=== PATIENT | female | born 1970 | race Caucasian/White ===

== ENCOUNTER → 2017-03-08 | Outpatient (CLI) | payer BC ==
--- NOTE | 2017-03-12 07:37 | MM ---
Reason for exam: screening (asymptomatic). Last mammogram was performed 1 year and 1 month ago. History: Family history of breast cancer in maternal aunt. Physical Findings: A clinical breast exam by your physician is recommended on an annual basis and results should be correlated with mammographic findings. MG 3D Screening Mammo W/Cad Bilateral CC and MLO view(s) were taken. Prior study comparison: January 26, 2016, bilateral MG 3d diag mammo w/cad NEELAM. March 10, 2013, bilateral digital screening mammo w/CAD. The breast tissue is heterogeneously dense. This may lower the sensitivity of mammography. There is chronic nodularity bilaterally. No significant changes when compared with prior studies. ASSESSMENT: Negative, BI-RAD 1 RECOMMENDATION: Routine screening mammogram of both breasts in 1 year.
== END | disposition home or self-care (01) ==
LOC: RADMAMWWP 09:10
PROVIDERS: ATTEND Obstetrics & Gynecology
DX: Z12.31 Encounter for screening mammogram for malignant neoplasm of breast (principal)
CPT/HCPCS: 77063; G0202

== ENCOUNTER → 2018-04-23 | Outpatient (CLI) | payer BC ==
--- NOTE | 2018-04-24 13:24 | MM ---
Reason for exam: screening (asymptomatic). Last mammogram was performed 1 year and 1 month ago. History: Family history of breast cancer in maternal aunt. Physical Findings: A clinical breast exam by your physician is recommended on an annual basis and results should be correlated with mammographic findings. MG 3D Screening Mammo W/Cad Bilateral CC and MLO view(s) were taken. Prior study comparison: March 08, 2017, bilateral MG 3d screening mammo w/cad. January 26, 2016, bilateral MG 3d diag mammo w/cad NEELAM. The breast tissue is extremely dense which could obscure a lesion on mammography. No significant changes when compared with prior studies. ASSESSMENT: Benign, BI-RAD 2 RECOMMENDATION: Routine screening mammogram of both breasts in 1 year.
== END | disposition home or self-care (01) ==
LOC: RADMAMWWP 16:50
PROVIDERS: ATTEND Obstetrics & Gynecology
DX: Z12.31 Encounter for screening mammogram for malignant neoplasm of breast (principal); Z80.3 Family history of malignant neoplasm of breast
CPT/HCPCS: 77063; 77067

== ENCOUNTER 2019-04-13 16:09 | Emergency (ER) | payer BC ==
[2019-04-13 16:15] VITALS: TEMP 98.2
[2019-04-13] MEDS ORDERED: SODIUM CHLORIDE 0.9% 1,000 ML IV STA (16:17)
[2019-04-13] MEDS ORDERED: diphenhydrAMINE 50 MG/ML 1 ML VIAL IVP STA (16:17)
[2019-04-13] MEDS ORDERED: ONDANSETRON 4 MG/2 ML VIAL IVP STA (16:17)
--- NOTE | 2019-04-13 16:46 | ED ---
General Adult HPI - General Chief complaint: Headache Stated complaint: HEADACHE, HYPERTENSION Time Seen by Provider: 04/13/19 16:17 Source: patient Mode of arrival: ambulatory Limitations: no limitations - History of Present Illness Initial comments: Dictation was produced using [employer] dictation software. please excuse any grammatical, word or spelling errors. Chief Complaint: 49-year-old male presents with 2 days of headache. History of Present Illness: 49-year-old female presents with chief complaint headache. She states she had a headache since yesterday. She checked her blood pressure today is found to be high. They're concerned and came to the emergency department. Patient has history of viral meningitis. She denies any neck pain at this time. Headache is told cranial with a throbbing nature. She has been suffering from a cold for the last 10 days. Patient has history of headaches patient states his headache is similar however slightly different from her usual headaches. Any neuro deficits. No visual disturbances. Denies thunderclap nature. Patient denies is being worsening of her life. The ROS documented in this emergency department record has been reviewed and confirmed by me. Those systems with pertinent positive or negative responses have been documented in the HPI. All other systems are other negative and/or noncontributory. PHYSICAL EXAM: General Impression: Alert and oriented x3, not in acute distress HEENT: Normocephalic atraumatic, extra-ocular movements intact, pupils equal and reactive to light bilaterally, mucous membranes moist. Cardiovascular: Heart regular rate and rhythm, S1&S2 audible, no murmurs, rubs or gallops Chest: Lungs clear to auscultation bilaterally, no rhonchi, no wheeze, no rales Abdomen: Bowel sounds present, abdomen soft, non-tender, non-distended, no organomegaly Musculoskeletal: Pulses present and equal in all extremities, no peripheral edema Motor: no focal deficits noted Neurological: CN II-XII grossly intact, no focal motor or sensory deficits noted, negative Brudzinski's, negative Kernig's, no lhermittes sign. Skin: Intact with no visualized rashes Psych: Normal affect and mood ED course: 49 yo female presents with chief complaint headache. Signs upon arrival shows blood pressure 187/106, rest of vital signs within acceptable limits. Patient is no focal neurologic deficits. Patient's headache has been told cranial throbbing in nature. It is not thunderclap. This is not worsening of her life. Physical examination is benign. She was discussed with patient. At this point there is no clear indication for performance of CT of the brain or lumbar puncture. No clinical suspicion of subarachnoid bleed. Patient provided with headache cocktail. Laboratory evaluation obtained. Leukocytosis, point to likely secondary to stress. Coag panel unremarkable. Metabolic panel is negative. Patient given headache cocktail and reevaluated. She reports dramatic improvement of symptoms. Patient vital signs were trended. Blood pressures improved. This point patient's clinical presentation likely secondary to migraine versus tension headache. Return Prevacid discussed. Patient does not feel the need for CT imaging at this time. Believe the patient can be safely discharged with return precautions. She is advised follow-up with her PCP upon discharge. Patient understandable agreeable with disposition. EKG interpretation: Ventricular rate 67, normal sinus rhythm,. Interval 118, care is 100, QTC 445. No HI prolongation, no QTC prolongation, no ST or T-wave changes noted. Overall, this EKG is unremarkable - Related Data Home Medications Medication Instructions Recorded Confirmed No Known Home Medications 04/13/19 04/13/19 Allergies Allergy/AdvReac Type Severity Reaction Status Date / Time codeine Allergy Nausea Verified 04/13/19 17:28 morphine AdvReac "SWEATING/FEELS Verified 04/13/19 17:28 LIKE SHES ON FIRE" promethazine HCl AdvReac AGITATION Verified 04/13/19 17:28 [From Phenergan] Review of Systems ROS Statement: Those systems with pertinent positive or pertinent negative responses have been documented in the HPI. ROS Other: All systems not noted in ROS Statement are negative. Past Medical History Past Medical History: Hypertension History of Any Multi-Drug Resistant Organisms: None Reported Past Surgical History: Hysterectomy, Orthopedic Surgery Additional Past Surgical History / Comment(s): nose Past Psychological History: No Psychological Hx Reported Smoking Status: Never smoker Past Alcohol Use History: None Reported Past Drug Use History: None Reported General Exam Limitations: no limitations Course Vital Signs 04/13/19 04/13/19 04/13/19 16:12 17:21 18:03 Temperature 98.2 F Pulse Rate 87 62 80 Respiratory 18 16 16 Rate Blood Pressure 187/106 178/109 161/97 O2 Sat by Pulse 98 98 98 Oximetry 04/13/19 18:27 Temperature Pulse Rate 74 Respiratory 16 Rate Blood Pressure 125/75 O2 Sat by Pulse 98 Oximetry Medical Decision Making - Lab Data Result diagrams: 04/13/19 16:40 04/13/19 16:40 Lab Results 04/13/19 04/13/19 04/13/19 Range/Units 16:40 16:40 16:40 WBC 12.2 H (3.8-10.6) k/uL RBC 4.30 (3.80-5.40) m/uL Hgb 13.4 (11.4-16.0) gm/dL Hct 38.6 (34.0-46.0) % MCV 89.8 (80.0-100.0) fL MCH 31.1 (25.0-35.0) pg MCHC 34.6 (31.0-37.0) g/dL RDW 13.2 (11.5-15.5) % Plt Count 365 (150-450) k/uL Neutrophils % 78 % Lymphocytes % 15 % Monocytes % 4 % Eosinophils % 1 % Basophils % 1 % Neutrophils # 9.5 H (1.3-7.7) k/uL Lymphocytes # 1.9 (1.0-4.8) k/uL Monocytes # 0.4 (0-1.0) k/uL Eosinophils # 0.1 (0-0.7) k/uL Basophils # 0.1 (0-0.2) k/uL PT 11.5 (9.0-12.0) sec INR 1.1 (<1.2) APTT 28.4 (22.0-30.0) sec Sodium 139 (137-145) mmol/L Potassium 4.1 (3.5-5.1) mmol/L Chloride 107 (98-107) mmol/L Carbon Dioxide 22 (22-30) mmol/L Anion Gap 10 mmol/L BUN 10 (7-17) mg/dL Creatinine 0.71 (0.52-1.04) mg/dL Est GFR (CKD-EPI)AfAm >90 (>60 ml/min/1.73 sqM) Est GFR (CKD-EPI)NonAf >90 (>60 ml/min/1.73 sqM) Glucose 118 H (74-99) mg/dL Calcium 9.0 (8.4-10.2) mg/dL Magnesium 2.1 (1.6-2.3) mg/dL Disposition Clinical Impression: Headache Disposition: HOME SELF-CARE Condition: Good Instructions (If sedation given, give patient instructions): Acute Headache (ED) Is patient prescribed a controlled substance at d/c from ED?: No Referrals: Callum Ruby DO [Primary Care Provider] - 1-2 days Time of Disposition: 18:30
[2019-04-13 16:58] LABS: Basophils # (A) 0.1 k/uL (0-0.2); Basophils % (A) 1 %; Eosinophils # (A) 0.1 k/uL (0-0.7); Eosinophils % (A) 1 %; HCT 38.6 % (34.0-46.0); HGB 13.4 gm/dL (11.4-16.0); Lymphocytes # (A) 1.9 k/uL (1.0-4.8); Lymphocytes % (A) 15 %; MCH 31.1 pg (25.0-35.0); MCHC 34.6 g/dL (31.0-37.0); MCV 89.8 fL (80.0-100.0); Monocytes # (A) 0.4 k/uL (0-1.0); Monocytes % (A) 4 %; Neutrophils # (A) 9.5 k/uL (1.3-7.7); Neutrophils % (A) 78 %; Platelet Count 365 k/uL (150-450); RDW 13.2 % (11.5-15.5); WBC 12.2 k/uL (3.8-10.6)
[2019-04-13 17:07] LABS: African American GFR (CKD) >90 (>60 ml/min/1.73 sqM); Anion Gap 10 mmol/L; Blood Urea Nitrogen 10 mg/dL (7-17); Carbon Dioxide 22 mmol/L (22-30); Chloride 107 mmol/L (98-107); Glucose 118 mg/dL (74-99); Sodium 139 mmol/L (137-145)
[2019-04-13] MEDS ORDERED: DEXAMETHASONE SOD PHOSPHATE 10 MG/ML 1 ML VIAL IV STA (17:07)
[2019-04-13 17:08] LABS: INR 1.1 (<1.2); Partial Thromboplastin Time 28.4 sec (22.0-30.0); Prothrombin Time 11.5 sec (9.0-12.0)
[2019-04-13 17:17] LABS: Magnesium 2.1 mg/dL (1.6-2.3); Potassium 4.1 mmol/L (3.5-5.1)
[2019-04-13 17:24] VITALS: RESP 16
[2019-04-13 18:29] VITALS: BP 125/75; PULSE 74
== END 2019-04-13 18:45 | disposition home or self-care (01) ==
LOC: EC 16:09
DX: R51 Headache (principal); I10 Essential (primary) hypertension; D72.829 Elevated white blood cell count, unspecified; Z86.61 Personal history of infections of the central nervous system; Z88.5 Allergy status to narcotic agent; Z88.8 Allergy status to other drugs, medicaments and biological substances
CPT/HCPCS: 36415; 93005; 80048; 83735; 85025; 85610; 85730; 99284; 96374; 96375 ×2; 96361; J1200; J1100; J2405

== ENCOUNTER → 2019-06-18 | Outpatient (CLI) | payer BC ==
--- NOTE | 2019-06-19 07:44 | MM ---
Reason for exam: additional evaluation requested from prior study. Last mammogram was performed 1 year and 2 months ago. History: Family history of breast cancer in maternal aunt. Physical Findings: Nurse Summary: 2cm nodule in the left breast at 5 o'clock (nurse kp). MG 3D Diag Mammo W/Cad NEELAM Bilateral CC and MLO view(s) were taken. Prior study comparison: April 23, 2018, bilateral MG 3d screening mammo w/cad. March 08, 2017, bilateral MG 3d screening mammo w/cad. The breast tissue is heterogeneously dense. This may lower the sensitivity of mammography. There are round, oval, circumscribed, bilateral masses waxing and waning most mammographically compatible with cysts however there is a palpable on the left and ultrasound will be performed. These results were verbally communicated with the patient and result sheet given to the patient on 06/18/19. ASSESSMENT: Incomplete: need additional imaging evaluation, BI-RAD 0 RECOMMENDATION: Ultrasound of both breasts.
--- NOTE | 2019-06-19 07:56 | USB ---
Reason for exam: additional evaluation requested from abnormal screening. History: Family history of breast cancer in maternal aunt. US Breast Limited BILAT Technologist: Nela Jarquin Right limited breast ultrasound including focal area of concern, retroareolar and axilla demonstrates a 0.8 x 1.0 x 0.6cm cluster at 9 o'clock, a 0.7 x 0.5 x 0.4cm cystic lesion with debris, probable complicated cyst at 10 o'clock and a 0.6 x 0.5 x 0.5cm simple appearing cystic lesion at 10 o'clock. Left complete breast ultrasound includes all four quadrants, the retroareolar region and axilla. Finding demonstrates a 0.9 x 1.2 x 0.2cm lesion at 1 o'clock, a 0.9 x 0.7 x 0.5cm simple appearing cystic lesion at 2 o'clock and duct ectasia at the posterior nipple, internal debris and possible intraductal mass, biopsy recommended. These results were verbally communicated with the patient and result sheet given to the patient on 06/18/19. ASSESSMENT: Suspicious, BI-RAD 4 RECOMMENDATION: Ultrasound core biopsy of the left breast. Called Dr. Ferrari's office with mammographic findings and has scheduled an appointment for the patient for 07/03/19 at 2:[address] Ramírez. Biopsy scheduled for 07/06/19 at 8:00. PRELIMINARY REPORT CALLED AND FAXED TO DR. RAMÍREZ ON 06/19/19.
== END | disposition home or self-care (01) ==
LOC: RADMAMWWP 12:53
PROVIDERS: ATTEND Obstetrics & Gynecology
DX: N63.23 Unspecified lump in the left breast, lower outer quadrant (principal); R92.8 Other abnormal and inconclusive findings on diagnostic imaging of breast
CPT/HCPCS: 77062; 77066

== ENCOUNTER → 2019-07-03 | Outpatient (CLI) | payer BC ==
[2019-07-03 14:29] VITALS: BP 142/96; PULSE 91; RESP 18; TEMP 98.7
--- NOTE | 2019-07-03 15:25 | P.GSHP ---
History of Present Illness H&P Date: 07/03/19 Chief Complaint: abnormal mammogram of the left breast Sarah is a 49 year old white female who had appointment with her electronic gluer and on physical examination an area of increased nodularity was detected at the 6 o'clock position of the left breast. The patient herself does not feel any new nodules or lumps for which she is concerned. She does intermittently have discomfort in the breast which she attributes to possibly being hormonally related as it appears to be somewhat cyclical. She has no nipple discharge or skin changes for which she is concerned. The discomfort that she feels is fleeting in nature. It is described as shooting pain not spread a place. In the last for short periods of time seconds. She had a bilateral mammogram performed on 1227. This was felt to be inconclusive and ultrasound of both breasts was recommended. Bilateral ultraso und was performed in the right breast is noted to have multiple cystic areas. In the left breast multiple cystic areas were identified as well however posterior to the nipple there was an area which appeared to have a duct which was dilated with internal debris. It is that area for which biopsy has been recommended. She had a hysterectomy in 2005 and does not have menstrual periods, done for [facility]. recently diagnosed with a cyst on her right ovary. She in May 2017 noted that the house in which she was living was noted to have mold and high levels of formaldehyde. She than moved out and now eats very healthy. caffeine: none smoke none chocolate: occasionally hormones: none no soy products or plant estrogens Family History: maternal aunt: breast and bone cancer Hormonal History: menarche: 10 1 miscarriage, breast fed: no, first born at 18 menopause: hysterectomy at 36 BCP: 5 years hormones: none Past Surgical History: 1. hysterectomy 2. nose fracture Medical History: 1. HTN Social History: smoke: none alcohol: none drugs: none - Constitutional Constitutional: Denies chills, Denies fever - EENT Comment: glasses for long distance Ears: bilateral: tinnitus, deny: decreased hearing Ears, nose, mouth and throat: Reports headache - Breasts Breasts: bilateral: as per HPI - Cardiovascular Cardiovascular: Reports high blood pressure - Respiratory Respiratory: Denies cough, Denies 7 - Gastrointestinal Comment: colonoscopy scheduled for July Gastrointestinal: Reports constipation, Reports diarrhea, Denies abdominal pain, Denies nausea, Denies vomiting - Genitourinary (Female) Genitourinary: Denies dysuria, Denies hematuria - Menstruation Menstruation: Reports post hysterectomy - Musculoskeletal Musculoskeletal: Denies myalgias - Integumentary Comment: complexion on face blotchy Integumentary: Denies pruritus, Denies rash - Neurological Neurological: Denies numbness, Denies weakness - Psychiatric Psychiatric: Denies anxiety, Denies depression - Endocrine Endocrine: Reports weight change - Hematologic/Lymphatic Comment: none - Allergic/Immunologic Allergic/Immunologic: Reports seasonal allergies Past Medical History Past Medical History: Hypertension History of Any Multi-Drug Resistant Organisms: None Reported Past Surgical History: Hysterectomy, Orthopedic Surgery Additional Past Surgical History / Comment(s): nose Past Psychological History: No Psychological Hx Reported Smoking Status: Never smoker Past Alcohol Use History: None Reported Past Drug Use History: None Reported Medications and Allergies Home Medications Medication Instructions Recorded Confirmed Type Ascorbic Acid [Vitamin C] 500 mg PO DAILY 06/24/19 07/03/19 History Cholecalciferol (Vitamin D3) 2,000 unit PO DAILY 06/24/19 07/03/19 History [Vitamin D3] L.acidoph,Paracasei, B.lactis 1 each PO DAILY 06/24/19 07/03/19 History [Probiotic] Turmeric Root Extract [Turmeric] 500 mg PO DAILY 06/24/19 07/03/19 History Valsartan [Diovan] 40 mg PO DAILY 06/24/19 07/03/19 History Allergies Allergy/AdvReac Type Severity Reaction Status Date / Time codeine Allergy Nausea Verified 07/03/19 14:29 morphine AdvReac "SWEATING/FEELS Verified 07/03/19 14:29 LIKE SHES ON FIRE" promethazine HCl AdvReac AGITATION Verified 07/03/19 14:29 [From Phenergan] Surgical - Exam Vital Signs Temp Pulse Resp BP Pulse Ox 98.7 F 91 18 142/96 99 07/03/19 14:26 07/03/19 14:26 07/03/19 14:26 07/03/19 14:26 07/03/19 14:26 BMI 25.8 - General well developed, well nourished, no distress - Eyes normal ocular movement, no icteric - ENT normal pinna, normal nares, no hearing loss, no congestion - Neck no masses, trachea midline - Respiratory normal expansion, normal respiratory effort, clear to auscultation - Cardiovascular Rhythm: regular Heart Sounds: normal: S1, S2 - Abdomen Abdomen: soft, non tender, no guarding, no rigid, no rebound - Integumentary normal turgor - Neurologic no disoriented, no combative - Musculoskeletal normal gait, normal posture - Psychiatric oriented to time, oriented to person, oriented to place, speech is normal, memory intact breast exam: BRA 38D ptosis grade 2/3 Inspection: No evidence of any skin lesions of concern, no nipple inversion Outpatient: Right breast: Multi-positional exam fibrocystic changes, no dominant masses or nodules of concern Right axilla: No adenopathy of concern Left breast: Multiple positional exam no dominant masses or nodules of concern, fibrocystic changes, particularly attention to the retroareolar area reveals some mild increased fullness but this is consistent with fibrocystic changes Left axilla: No adenopathy of concern Results Mammogram and ultrasound results reviewed and observed Assessment and Plan Assessment: Impression: 1. Mammographic/ultrasound abnormality left breast 2. Thickening left breast site of mammographic abnormality 3. Bilateral fibrocystic breast changes 4. HTN Plan: 1. Ultrasound-guided core biopsy left breast 2. Discussion of azar-menopausal breast changes We have discussed causes of fibrocystic breast disease. We've also discussed the fact that the patient is most likely. Menopausal and the fluctuations in her hormones may be contributing to the changes in her breasts. Patient understands this and is going to proceed with ultrasound-guided core biopsy of the left breast. Cc: Dr. Ruby encounter 50 minutes: > 50 % of time in planning and counseling Time with Patient: Greater than 30
== END ==
LOC: WWCWWP 13:56
PROVIDERS: ATTEND Surgery
DX: Z53.9 Procedure and treatment not carried out, unspecified reason (principal)

== ENCOUNTER → 2019-07-07 | Day surgery (SDC) | payer BC ==
[2019-07-07 13:55] VITALS: BP 127/82; PULSE 81; RESP 16; TEMP 99
--- NOTE | 2019-07-07 15:04 | USB ---
EXAMINATION TYPE: US discontinued breast core LT DATE OF EXAM: 07/07/2019 CLINICAL HISTORY: R92.8, ABN MAMM. Abnormal ultrasound TECHNIQUE: Ultrasound guided core biopsy of left breast. COMPARISON: Prior bilateral breast ultrasound June 18, 2019. FINDINGS: The procedure of ultrasound guided core biopsy was explained to the patient. Benefits, alt ernatives, and risks were discussed. An informed consent was then obtained. The patient was placed in supine positioning for imaging and for the procedure. Preprocedure imaging redemonstrates prominent ductal ectasia subareolar region left breast but intraductal mass or lesion not clearly identified. Findings discussed with patient. She has no symptoms of abnormal nipple disc harge. Because lack of visualized lesion to sample and symptoms procedure is canceled. Patient was agreeable to canceled procedure and short-term 6 month diagnostic follow-up ultrasound on discussion. IMPRESSION: Canceled ultrasound guided core biopsy of area of concern in the left breast. BI-RADS 3 probable benign findings Recommendation: Precautionary diagnostic left breast ultrasound follow-up in 6 months time.
== END ==
LOC: RADUSWWP 13:39
PROVIDERS: ATTEND Surgery
DX: R92.8 Other abnormal and inconclusive findings on diagnostic imaging of breast (principal)

== ENCOUNTER 2019-08-04 08:55 | Day surgery (SDC) | payer BC ==
[2019-07-30 15:03] VITALS: BMI 25.7
[~2019-08-04 08:55] MED LIST: LACTATED RINGERS 1,000 ML IV SCH
[2019-08-04 09:17] VITALS: RESP 16; TEMP 98.5
[2019-08-04] MEDS ORDERED: ONDANSETRON 4 MG/2 ML VIAL IVP ONE (09:24)
[2019-08-04] MEDS ORDERED: PROPOFOL 10 MG/ML 20 ML VIAL IV ONE (09:48)
--- NOTE | 2019-08-04 10:19 | P.PCN ---
Date of Procedure: 08/04/19 Description of Procedure: BRIEF HISTORY: Patient is a 49-year-old female presenting for colonoscopy for evaluation of chronic constipation. No prior colonoscopies reported. No blood per rectum. She does report chronic history of constipation worse recently. PROCEDURE PERFORMED: Colonoscopy. PREOPERATIVE DIAGNOSIS: Chronic constipation, no prior colonoscopy, altered bowel function/worsened recent constipation. ESTIMATED BLOOD LOSS: Minimal. IV sedation per Anesthesia. PROCEDURE: After informed consent was obtained, the patient, was brought into the endoscopy unit. IV sedation was administered by Anesthesia under continuous monitoring. Digital rectal examination was normal. Initially the Olympus CF-190 flexible video colonoscope was then inserted in the rectum, gradually advanced into the cecum without any difficulty. Careful examination was performed as the scope was gradually being withdrawn. Ileocecal valve and the appendiceal orifice were visualized and appeared normal. Prep was excellent. Mucosa of the cecum, ascending colon, transverse colon, descending colon, sigmoid colon, and rectum appeared normal. Multiple small diverticula noted in the left colon. Retroflexion was performed in the rectum and no lesions were seen. The patient tolerated the procedure well. IMPRESSION: Normal-appearing colon from rectum to cecum. Mild left colonic diverticulosis. RECOMMENDATIONS: Findings of this examination were discussed with the patient and her . Okay to resume diet. Would recommend fiber supplementation with Metamucil or Benefiber, and escalation to MiraLAX therapy if no improvement in bowel movements. Recommendation is for repeat colonoscopy in 10 years or sooner if signs or symptoms which warrant further evaluation develop.
[2019-08-04 10:35] VITALS: BP 127/77; PULSE 67
== END 2019-08-04 10:56 | disposition home or self-care (01) ==
LOC: ORWHC2ENDO 08:55
PROVIDERS: ATTEND Internal Medicine
DX: K57.30 Diverticulosis of large intestine without perforation or abscess without bleeding (principal); I10 Essential (primary) hypertension; Z88.5 Allergy status to narcotic agent; Z88.8 Allergy status to other drugs, medicaments and biological substances; Z90.711 Acquired absence of uterus with remaining cervical stump; Z79.899 Other long term (current) drug therapy; Z98.890 Other specified postprocedural states
CPT/HCPCS: 45378; J2405; J2704

== ENCOUNTER → 2019-12-30 | Outpatient (CLI) | payer BC ==
--- NOTE | 2019-12-30 10:44 | USB ---
Reason for exam: follow-up at short interval from prior study. History: Family history of breast cancer in maternal aunt at age 70. US discontinued breast core LT of the left breast, July 07, 2019. Physical Findings: Nurse Summary: 2.5cm circumscribed lump left beast 4 o'clock, questionable lipoma (nurse mj). US Breast LT Technologist: Nela Jarquin Left complete breast ultrasound includes all four quadrants, the retroareolar region and axilla. Finding demonstrates a 0.7 x 0.5 x 0.5cm circumscribed cystic lesion at 2 o'clock, a 3.2 x 3.5 x 2.3cm mixed lesion at 4 o'clock for which a biopsy is recommended, duct ectasia with internal echoes at the posterior nipple, a 0.5 x 0.6 x 0.4cm vascular lesion at 2 o'clock, a 0.7 x 0.8 x 0.7cm cystic lesion with internal echoes at 2 o'clock, reassess and a 0.9 x 1.1 x 0.4cm lesion at 2 o'clock for which a biopsy is recommended. These results were verbally communicated with the patient and result sheet given to the patient on 12/30/19. ASSESSMENT: Suspicious, BI-RAD 4 RECOMMENDATION: Ultrasound core biopsy of the left breast. Called Dr. Ferrari's office with mammographic findings and has scheduled an appointment for the patient for 01/14/20 at 7:[address] Ramírez. Biopsy scheduled for 01/05/20 at 1:00 PRELIMINARY REPORT CALLED AND FAXED TO DR. RAMÍREZ ON 12/30/19.
== END | disposition home or self-care (01) ==
LOC: RADUSWWP 08:49
PROVIDERS: ATTEND Obstetrics & Gynecology
DX: R92.8 Other abnormal and inconclusive findings on diagnostic imaging of breast (principal)

== ENCOUNTER → 2020-01-05 | Day surgery (SDC) | payer BC ==
[2020-01-05 12:26] VITALS: RESP 16
[2020-01-05 13:57] VITALS: BP 121/80; PULSE 75; TEMP 98.7
--- NOTE | 2020-01-05 14:47 | USB ---
EXAMINATION TYPE: US biopsy breast VAD LT, US biopsy breast add'l VAD LT, Postbiopsy MG diagnostic mammo LT wo CAD DATE OF EXAM: 01/05/2020 CLINICAL HISTORY: 50-year-old female R92.8 Abnormal Mammogram. TECHNIQUE: Ultrasound guided core biopsy of the left breast. COMPARISON: 12/30/2019 and 06/18/2019 FINDINGS: The procedure of ultrasound guided core biopsy was explained to the patient. Benefits, alternatives, and risks were discussed. An informed consent was then obtained. The patient was placed in supine positioning for imaging and for the procedure. The overlying skin was prepped and draped in usual sterile fashion. Lidocaine was used as anesthetic into the skin and subcutaneous tissue up to area of concern in the left breast at each site in turn. SITE 1, 4:00 palpable mass, possible island of dense tissue, fibroadenoma, etc.: Under ultrasound guidance, a 13-gauge vacuum-assisted mammotome biopsy gun device was used to obtain 6 core samples. Following this, a ribbon clip was left in lesion. SITE 2, 2:00 indeterminate, vague irregular area: Under ultrasound guidance, a 13-gauge vacuum-assisted mammotome biopsy gun device was used to obtain 6 core samples. Following this, a coil clip was left in lesion. The patient tolerated the procedure well without any immediate complication. The patient was kept in the radiology department for short stay after the procedure and then discharged home in stable condition. Postbiopsy mammogram shows both clips in place. IMPRESSION: Successful, uncomplicated ultrasound guided core biopsy of 2 areas of concern in the left breast. Full pathology results to follow. Pathology Results: Benign A. LEFT BREAST, FOUR O'CLOCK, BIOPSY: Fibrocystic changes (unfolding lobules with stromal fibrosis). B. LEFT BREAST, TWO O'CLOCK, BIOPSY: Fibroadenomatous and fibrocystic changes. Recommendation Follow up mammogram of the left breast in 6 months. SRIKANTH
== END ==
LOC: RADUSWWP 11:57
PROVIDERS: ATTEND Surgery
DX: D24.2 Benign neoplasm of left breast (principal); N60.12 Diffuse cystic mastopathy of left breast
CPT/HCPCS: 88305; 77065; 19083; 19084; A4648; J2001

== ENCOUNTER 2020-04-15 18:39 | Emergency (ER) | payer BC ==
[2020-04-15] MEDS ORDERED: METOCLOPRAMIDE 5 MG/ML 2 ML VIAL IVP STA (19:42)
[2020-04-15] MEDS ORDERED: SODIUM CHLORIDE 0.9% 1,000 ML IV STA (19:42)
[2020-04-15] MEDS ORDERED: diphenhydrAMINE 50 MG/ML 1 ML VIAL IVP STA (19:42)
[2020-04-15] MEDS ORDERED: DEXAMETHASONE SOD PHOSPHATE 10 MG/ML 1 ML VIAL IV STA (20:14)
--- NOTE | 2020-04-15 21:05 | ED ---
General Adult HPI - General Chief complaint: Nausea/Vomiting/Diarrhea Stated complaint: nausea/covid+ Time Seen by Provider: 04/15/20 19:05 Source: patient Mode of arrival: ambulatory Limitations: no limitations - History of Present Illness Initial comments: 50-year-old female presents to the emergency department with complaints of fever, nausea, vomiting, and diarrhea for 10 days and is accompanied by loss of taste and smell. Patient states her tested positive for COVID nearly 2 weeks ago and though she has not been tested, her primary care provider diagnosed her due to symptoms and close proximity. States she was seen in the office today and had a chest x-ray which she said showed a small pneumonia and she was started on oral steroids. Patient states since the steroids she has had increased vomiting along with diffuse abdominal soreness; denies shortness of breath, difficulty breathing, and tightness in her chest. Does have a mild dry cough. Patient denies any recent rash, constipation, back pain, numbness, tingling, dizziness, weakness, hematuria, dysuria, urinary urgency, urinary frequency, headache, visual changes, or any other complaints. - Related Data Home Medications Medication Instructions Recorded Confirmed Cholecalciferol [Vitamin D3 (25 2,000 unit PO DAILY 04/15/20 04/15/20 Mcg = 1000 Iu)] Ondansetron HCl [Zofran] 8 mg PO Q8H PRN 04/15/20 04/15/20 Quercetin 1,000 Mg 1,000 mg PO DAILY 04/15/20 04/15/20 Valsartan 80 mg PO DAILY 04/15/20 04/15/20 Vitamin A Acetate [Vitamin A] 10,000 unit SL DAILY 04/15/20 04/15/20 Zinc 100 mg PO DAILY 04/15/20 04/15/20 Previous Rx's Medication Instructions Recorded Metoclopramide [Reglan] 10 mg PO Q8H PRN #30 tab 04/15/20 Allergies Allergy/AdvReac Type Severity Reaction Status Date / Time codeine Allergy Nausea Verified 04/15/20 22:18 morphine AdvReac "SWEATING/FEELS Verified 04/15/20 22:18 LIKE SHES ON FIRE" promethazine HCl AdvReac AGITATION Verified 04/15/20 22:18 [From Phenergan] Review of Systems ROS Statement: Those systems with pertinent positive or pertinent negative responses have been documented in the HPI. ROS Other: All systems not noted in ROS Statement are negative. Past Medical History Past Medical History: Hypertension History of Any Multi-Drug Resistant Organisms: None Reported Past Surgical History: Hysterectomy, Tonsillectomy Additional Past Surgical History / Comment(s): fx nose repair. Past Anesthesia/Blood Transfusion Reactions: Family History of Problems w/ Anesthesia, Motion Sickness, Postoperative Nausea & Vomiting (PONV) Additional Past Anesthesia/Blood Transfusion Reaction / Comment(s): dad ponv Past Psychological History: No Psychological Hx Reported Smoking Status: Never smoker Past Alcohol Use History: None Reported Past Drug Use History: None Reported - Past Family History Mother Family Medical History: No Reported History General Exam Limitations: no limitations General appearance: alert, in no apparent distress Eye exam: Present: normal appearance, PERRL. Absent: scleral icterus, conjun ctival injection, periorbital swelling Pupils: Present: normal accommodation Respiratory exam: Present: normal lung sounds bilaterally. Absent: respiratory distress, wheezes, rales, rhonchi, stridor Cardiovascular Exam: Present: regular rate, normal rhythm, normal heart sounds. Absent: systolic murmur, diastolic murmur, rubs, gallop, clicks GI/Abdominal exam: Present: soft, normal bowel sounds. Absent: distended, tenderness, guarding, rebound, rigid Neurological exam: Present: alert, oriented X3, CN II-XII intact Psychiatric exam: Present: normal affect, normal mood Skin exam: Present: warm, dry, intact, normal color. Absent: rash Course Vital Signs 04/15/20 04/15/20 04/15/20 18:45 21:12 22:00 Temperature 97.9 F 97.9 F Pulse Rate 97 90 82 Respiratory 20 20 18 Rate Blood Pressure 155/93 150/94 132/83 O2 Sat by Pulse 96 96 Oximetry 04/15/20 22:31 Temperature 99.6 F Pulse Rate 85 Respiratory 18 Rate Blood Pressure O2 Sat by Pulse Oximetry Medical Decision Making - Medical Decision Making 50-year-old female presents to the emergency department for evaluation of nausea and vomiting intermittently over the last 10 days, worse today after taking prednisone given by her PCP for viral pneumonia. Patient has exposure to COVID, her was diagnosed 2 weeks ago. IV access was established and lab work was obtained. Was given IV fluids and her nausea was treated; additionally patient received IV Decadron. No significant findings in her lab work. Patient reports feeling significantly improved after treatment. Patient instructed to follow-up with her primary care provider for recheck in the next 1-2 days. Return parameters discussed in detail. Patient verbalizes understanding and agrees with this plan. - Lab Data Result diagrams: 04/15/20 21:05 04/15/20 21:05 Lab Results 04/15/20 04/15/20 04/15/20 Range/Units 21:05 21:05 21:05 WBC 9.1 (3.8-10.6) k/uL RBC 4.35 (3.80-5.40) m/uL Hgb 13.1 (11.4-16.0) gm/dL Hct 39.4 (34.0-46.0) % MCV 90.6 (80.0-100.0) fL MCH 30.3 (25.0-35.0) pg MCHC 33.4 (31.0-37.0) g/dL RDW 13.2 (11.5-15.5) % Plt Count 248 (150-450) k/uL Neutrophils % 90 % Lymphocytes % 6 % Monocytes % 3 % Eosinophils % 0 % Basophils % 0 % Neutrophils # 8.2 H (1.3-7.7) k/uL Lymphocytes # 0.6 L (1.0-4.8) k/uL Monocytes # 0.3 (0-1.0) k/uL Eosinophils # 0.0 (0-0.7) k/uL Basophils # 0.0 (0-0.2) k/uL Sodium 135 L (137-145) mmol/L Potassium 3.8 (3.5-5.1) mmol/L Chloride 102 (98-107) mmol/L Carbon Dioxide 25 (22-30) mmol/L Anion Gap 8 mmol/L BUN 9 (7-17) mg/dL Creatinine 0.77 (0.52-1.04) mg/dL Est GFR (CKD-EPI)AfAm >90 (>60 ml/min/1.73 sqM) Est GFR (CKD-EPI)NonAf 89 (>60 ml/min/1.73 sqM) Glucose 139 H (74-99) mg/dL Calcium 8.6 (8.4-10.2) mg/dL Total Bilirubin 0.4 (0.2-1.3) mg/dL AST 35 (14-36) U/L ALT 23 (4-34) U/L Alkaline Phosphatase 77 (38-126) U/L Total Protein 6.8 (6.3-8.2) g/dL Albumin 3.7 (3.5-5.0) g/dL Lipase 25 (23-300) U/L Urine Color Colorless Urine Appearance Clear (Clear) Urine pH 7.5 (5.0-8.0) Ur Specific [place] 1.004 (1.001-1.035) Urine Protein Negative (Negative) Urine Glucose (UA) Negative (Negative) Urine Ketones Negative (Negative) Urine Blood Negative (Negative) Urine Nitrite Negative (Negative) Urine Bilirubin Negative (Negative) Urine Urobilinogen <2.0 (<2.0) mg/dL Ur Leukocyte Esterase Negative (Negative) Disposition Clinical Impression: Vomiting, Suspected COVID-19 virus infection Disposition: HOME SELF-CARE Condition: Good Instructions (If sedation given, give patient instructions): Acute Nausea and Vomiting (ED), Viral Syndrome (ED) Additional Instructions: Take medications as directed. Follow up with your primary care physician for recheck on Saturday. Return to the emergency department immediately for any new, worsening, or concerning symptoms. Prescriptions: Metoclopramide [Reglan] 10 mg PO Q8H PRN #30 tab PRN Reason: Vomiting Is patient prescribed a controlled substance at d/c from ED?: No Referrals: Callum Ruby DO [Primary Care Provider] - 1-2 days Time of Disposition: 22:22
[2020-04-15 21:18] LABS: Basophils % (A) 0 %; Eosinophils % (A) 0 %; HCT 39.4 % (34.0-46.0); HGB 13.1 gm/dL (11.4-16.0); Lymphocytes # (A) 0.6 k/uL (1.0-4.8); Lymphocytes % (A) 6 %; MCH 30.3 pg (25.0-35.0); MCHC 33.4 g/dL (31.0-37.0); MCV 90.6 fL (80.0-100.0); Mean Platelet Volume 6.8; Monocytes # (A) 0.3 k/uL (0-1.0); Monocytes % (A) 3 %; Neutrophils # (A) 8.2 k/uL (1.3-7.7); Neutrophils % (A) 90 %; Platelet Count 248 k/uL (150-450); RBC 4.35 m/uL (3.80-5.40); RDW 13.2 % (11.5-15.5); WBC 9.1 k/uL (3.8-10.6)
[2020-04-15 21:47] LABS: Appearance,Urine Clear (Clear); Bilirubin,Urine Negative (Negative); Blood,Urine Negative (Negative); Color,Urine Colorless; Glucose,Urine (UA) Negative (Negative); Ketones,Urine Negative (Negative); Leukocyte Esterase,Urine Negative (Negative); Nitrite,Urine Negative (Negative); PH, Urine 7.5 (5.0-8.0); Protein,Urine Negative (Negative); Specific Gravity,Urine 1.004 (1.001-1.035); Urobilinogen,Urine <2.0 mg/dL (<2.0)
[2020-04-15 21:56] LABS: ALT 23 U/L (4-34); AST 35 U/L (14-36); African American GFR (CKD) >90 (>60 ml/min/1.73 sqM); Albumin 3.7 g/dL (3.5-5.0); Alkaline Phosphatase 77 U/L (38-126); Anion Gap 8 mmol/L; Blood Urea Nitrogen 9 mg/dL (7-17); Calcium 8.6 mg/dL (8.4-10.2); Carbon Dioxide 25 mmol/L (22-30); Chloride 102 mmol/L (98-107); Glucose 139 mg/dL (74-99); Lipase 25 U/L (23-300); Non-African American GFR(CKD) 89 (>60 ml/min/1.73 sqM); Potassium 3.8 mmol/L (3.5-5.1); Sodium 135 mmol/L (137-145); Total Bilirubin 0.4 mg/dL (0.2-1.3); Total Protein 6.8 g/dL (6.3-8.2)
[2020-04-15 22:25] VITALS: BP 132/83; RESP 18
[2020-04-15 22:32] VITALS: PULSE 85; TEMP 99.6
== END 2020-04-15 22:32 | disposition home or self-care (01) ==
LOC: EC 18:39
DX: U07.1 COVID-19 (principal); J12.89 Other viral pneumonia; I10 Essential (primary) hypertension; Z79.899 Other long term (current) drug therapy; Z88.5 Allergy status to narcotic agent; Z88.8 Allergy status to other drugs, medicaments and biological substances
CPT/HCPCS: 36415; 80053; 83690; 85025; 81003; 99284; 96374; 96375 ×2; U0003; J1200; J1100; J2765

== ENCOUNTER → 2020-07-11 | Outpatient (CLI) | payer BC ==
--- NOTE | 2020-07-11 11:27 | MM ---
Reason for exam: additional evaluation requested from prior study. Last mammogram was performed 6 months ago. History: Family history of breast cancer in maternal aunt at age 70. Benign US biopsy breast VAD LT of the left breast, January 05, 2020. Benign US biopsy breast add'l VAD LT of the left breast, January 05, 2020. US discontinued breast core LT of the left breast, July 07, 2019. Physical Findings: Nurse did not find any significant physical abnormalities on exam. MG 3D Diag Mammo W/Cad NEELAM Bilateral CC and MLO view(s) were taken. LM view(s) were taken of the right breast. Prior study comparison: January 05, 2020, left breast MG diagnostic mammo LT wo CAD. June 18, 2019, bilateral MG 3d diag mammo w/cad NEELAM. April 23, 2018, bilateral MG 3d screening mammo w/cad. March 08, 2017, bilateral MG 3d screening mammo w/cad. The breast tissue is heterogeneously dense. This may lower the sensitivity of mammography. There is chronic nodularity bilaterally. Anterior asymmetric density right MLO becomes less defined on additional with an appearance similar to older priors. No significant new findings when compared with previous films. These results were verbally communicated with the patient and result sheet given to the patient on 07/11/20. ASSESSMENT: Benign, BI-RAD 2 RECOMMENDATION: Routine screening mammogram of both breasts in 1 year.
== END | disposition home or self-care (01) ==
LOC: RADMAMWWP 10:12
PROVIDERS: ATTEND Surgery
DX: R92.8 Other abnormal and inconclusive findings on diagnostic imaging of breast (principal)
CPT/HCPCS: 77062; 77066

== ENCOUNTER → 2020-07-21 | Outpatient (CLI) | payer BC ==
[2020-07-21 14:53] VITALS: BP 145/84; PULSE 91; RESP 18; TEMP 98.6
--- NOTE | 2020-07-21 15:21 | P.GSHP ---
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 The patient herself does not feel any new nodules or lumps for which she is concerned. She does intermittently have discomfort in the breast which she attributes to possibly being hormonally related as it appears to be somewhat cyclical. She has no nipple discharge or skin changes for which she is concerned. The discomfort that she feels is fleeting in nature. It is described as shooting pain not spread a place. In the last for short periods of time seconds. She had a bilateral mammogram performed on 1228. This was felt to be inconclusive and ultrasound of both breasts was recommended. Bilateral ultrasound was performed in the right breast is noted to have multiple cystic areas. In the left breast multiple cystic areas were identified as well however posterior to the nipple there was an area which appeared to have a duct which was dilated with internal debris. It is that area for which biopsy has been recommended. She underwent ultrasound-guided core biopsy of 2 areas in the left breast and 720 120. Both were benign. Patient is not complaining of any lumps masses or nodules in either breast. She is not complaining of any pain in her breasts. No nipple discharge or skin changes. She had a bilateral mammogram performed on 120 521 which was felt to be benign BIRADS 2. She had a hysterectomy in 2005 and does not have menstrual periods, done for cyst. recently diagnosed with a cyst on her right ovary. She in May 2017 noted that the house in which she was living was noted to have mold and high levels of formaldehyde. She than moved out and now eats very healthy. caffeine: none smoke none chocolate: occasionally hormones: none no soy products or plant estrogens Family History: maternal aunt: breast and bone cancer Hormonal History: menarche: 10 1 miscarriage, breast fed: no, first born at 18 menopause: hysterectomy at 36 BCP: 5 years hormones: none Past Surgical History: 1. hysterectomy 2. nose fracture Medical History: 1. HTN 2. COVID/ had pneumonia, was in ER but not hospitalized Social History: smoke: none alcohol: none drugs: none - Constitutional Constitutional: Denies chills, Denies fever - EENT Comment: glasses for long distance Ears: bilateral: tinnitus, deny: decreased hearing Ears, nose, mouth and throat: Reports headache - Breasts Breasts: bilateral: as per HPI - Cardiovascular Cardiovascular: Reports high blood pressure - Respiratory Respiratory: Denies cough - Gastrointestinal Comment: colonoscopy scheduled for July Gastrointestinal: Reports constipation, Reports diarrhea, Denies abdominal pain, Denies nausea, Denies vomiting - Genitourinary (Female) Genitourinary: Denies dysuria, Denies hematuria - Menstruation Menstruation: Reports post hysterectomy - Musculoskeletal Musculoskeletal: Denies myalgias - Integumentary Comment: complexion on face blotchy Integumentary: Denies pruritus, Denies rash - Neurological Neurological: Denies numbness, Denies weakness - Psychiatric Psychiatric: Denies anxiety, Denies depression - Endocrine Endocrine: Reports weight change - Hematologic/Lymphatic Comment: none - Allergic/Immunologic Allergic/Immunologic: Reports seasonal allergies - Constitutional Constitutional: Denies chills, Denies fever - EENT Eyes: denies blurred vision, denies pain Ears: deny: decreased hearing, tinnitus Ears, nose, mouth and throat: Denies headache, Denies sore throat - Breasts Breasts: bilateral: as per HPI - Cardiovascular Cardiovascular: Denies chest pain, Denies shortness of breath - Respiratory Comment: Patient had pneumonia with COVID in March - Gastrointestinal Gastrointestinal: Denies abdominal pain, Denies diarrhea, Denies nausea, Denies vomiting - Genitourinary (Female) Genitourinary: Denies dysuria, Denies hematuria - Menstruation Comment: ovaries were not taken Menstruation: Reports post hysterectomy - Musculoskeletal Musculoskeletal: Denies myalgias - Integumentary Integumentary: Denies pruritus, Denies rash - Neurological Neurological: Denies numbness, Denies weakness - Psychiatric Psychiatric: Denies anxiety, Denies depression - Endocrine Endocrine: Denies fatigue, Denies weight change - Hematologic/Lymphatic Comment: none - Allergic/Immunologic Allergic/Immunologic: Reports seasonal allergies Past Medical History Past Medical History: Hypertension History of Any Multi-Drug Resistant Organisms: None Reported Past Surgical History: Hysterectomy, Tonsillectomy Additional Past Surgical History / Comment(s): fx nose repair. Past Anesthesia/Blood Transfusion Reactions: Family History of Problems w/ Anesthesia, Motion Sickness, Postoperative Nausea & Vomiting (PONV) Additional Past Anesthesia/Blood Transfusion Reaction / Comment(s): dad ponv Past Psychological History: No Psychological Hx Reported Smoking Status: Never smoker Past Alcohol Use History: None Reported Past Drug Use History: None Reported - Past Family History Mother Family Medical History: No Reported History Medications and Allergies Home Medications Medication Instructions Recorded Confirmed Type Cholecalciferol [Vitamin D3 (25 2,000 unit PO DAILY 04/15/20 07/21/20 History Mcg = 1000 Iu)] Valsartan 80 mg PO DAILY 04/15/20 07/21/20 History Allergies Allergy/AdvReac Type Severity Reaction Status Date / Time codeine Allergy Nausea Verified 07/21/20 14:49 morphine AdvReac "SWEATING/FEELS Verified 07/21/20 14:49 LIKE SHES ON FIRE" promethazine HCl AdvReac AGITATION Verified 07/21/20 14:49 [From Phenergan] Surgical - Exam Vital Signs Temp Pulse Resp BP Pulse Ox 98.6 F 91 18 145/84 100 07/21/20 14:50 07/21/20 14:50 07/21/20 14:50 07/21/20 14:50 07/21/20 14:50 BMI 26.6 - General well developed - Eyes normal ocular movement - ENT normal nares, no hearing loss - Neck no masses, trachea midline - Respiratory normal expansion, normal respiratory effort, clear to auscultation - Cardiovascular Rhythm: regular Heart Sounds: normal: S1, S2 - Abdomen Abdomen: soft, bowel sounds - Integumentary normal turgor - Neurologic no disoriented, no combative - Musculoskeletal normal gait, normal posture - Psychiatric oriented to time, oriented to person, oriented to place, speech is normal Breast Exam: BRA: 38D inspection: bilateral grade 3 ptosis Palpation: Right breast: Multi-positional exam fibrocystic changes, no dominant masses or nodules of concern Right axilla: No adenopathy of concern Left breast: Multiple superficial exam fibrocystic changes, no dominant masses or nodules of concern Left axilla: No adenopathy of concern Results Mammogram results reviewed Assessment and Plan Assessment: Impression: 1. Bilateral fibrocystic breast changes 2. Bilateral mammogram 98166 benign BIRADS 2 3. Patient status post ultrasound-guided core biopsy of the left breast December 2019 which was benign Plan: 1. Ultrasound of the left breast in the lateral aspect the patient had prior core biopsy if this does not show anything of concern nothing was found and physical exam of concern that was found, nothing was found radiographically of concern, patient has no concerns we will follow the patient conservatively with repeat evaluation in 1 year Cc: Dr. Dr. Ruby encounter 15 minutes, time spent in reviewing medical records, physical exam, and counselling.
--- NOTE | 2020-07-22 10:50 | USB ---
Reason for exam: clinical finding. History: Family history of breast cancer in maternal aunt at age 70. Benign US biopsy breast VAD LT of the left breast, January 05, 2020. Benign US biopsy breast add'l VAD LT of the left breast, January 05, 2020. US discontinued breast core LT of the left breast, July 07, 2019. Physical Findings: Nurse did not find any significant physical abnormalities on exam. US Breast Limited LT Left limited breast ultrasound including focal area of concern, retroareolar and axilla demonstrates a 0.6 x 0.6 x 0.5cm cystic lesion at 3 o'clock. These results were verbally communicated with the patient and result sheet given to the patient on 07/21/20. ASSESSMENT: Benign, BI-RAD 2 RECOMMENDATION: Routine screening mammogram of both breasts in 1 year. Back on schedule.
== END | disposition home or self-care (01) ==
LOC: WWCWWP 14:43
PROVIDERS: ATTEND Surgery
DX: R92.8 Other abnormal and inconclusive findings on diagnostic imaging of breast (principal)

== ENCOUNTER → 2021-10-18 | Outpatient (CLI) | payer BC ==
--- NOTE | 2021-10-18 14:57 | MM ---
Reason for exam: additional evaluation requested from prior study. Last mammogram was performed 1 year and 3 months ago. History: Family history of breast cancer in maternal aunt at age 70. Benign US biopsy breast VAD LT of the left breast, January 05, 2020. Benign US biopsy breast add'l VAD LT of the left breast, January 05, 2020. US discontinued breast core LT of the left breast, July 07, 2019. Physical Findings: A clinical breast exam by your physician is recommended on an annual basis and results should be correlated with mammographic findings. MG 3D Diag Mammo W/Cad NEELAM Bilateral CC and MLO view(s) were taken. Prior study comparison: July 21, 2020, left breast US breast limited LT. July 11, 2020, bilateral MG 3d diag mammo w/cad NEELAM. January 05, 2020, left breast MG diagnostic mammo LT wo CAD. June 18, 2019, bilateral MG 3d diag mammo w/cad NEELAM. The breast tissue is heterogeneously dense. This may lower the sensitivity of mammography. There is no discrete abnormality. No significant new findings when compared with previous films. Results were given to the patient verbally at the time of the exam. ASSESSMENT: Negative, BI-RAD 1 RECOMMENDATION: Routine screening mammogram of both breasts in 1 year.
== END | disposition home or self-care (01) ==
LOC: RADMAMWWP 14:24
PROVIDERS: ATTEND Obstetrics & Gynecology
DX: R92.8 Other abnormal and inconclusive findings on diagnostic imaging of breast (principal)
CPT/HCPCS: 77062; 77066

== ENCOUNTER → 2023-12-04 | Outpatient (CLI) | payer BC ==
--- NOTE | 2023-12-05 10:31 | MM ---
Reason for Exam: Screening (asymptomatic). Last mammogram was performed 2 year(s) and 1 month(s) ago. Patient History: Menarche at age 10. First Full-Term at age 18. Hysterectomy at age 34. 01/05/2020, Benign Core Biopsy on the left side. 01/05/2020, Benign Core Biopsy on the left side. 07/07/2019, US discontinued breast core LT on the left side. Maternal aunt had breast cancer, age 70. Risk Values: Ivette 5 year model risk: 1.6%. NCI Lifetime model risk: 10.9%. Prior Study Comparison: 01/05/2020 Left Diagnostic Mammogram, [facility]. 07/11/2020 Bilateral Diagnostic Mammogram, [facility]. 10/18/2021 Bilateral Diagnostic Mammogram, [facility]. Tissue Density: The breasts are heterogeneously dense, which may obscure small masses. Findings: Analyzed By CAD. There is no suspicious group of microcalcifications or new suspicious mass in either breast. Overall Assessment: Benign, BI-RAD 2 Management: Screening Mammogram of both breasts in 1 year. . Patient should continue monthly self-breast exams. A clinical breast exam by your physician is recommended on an annual basis. This exam should not preclude additional follow-up of suspicious palpable abnormalities. Note on Ivette scores and lifetime risk: 1. A Ivette score greater than 3% is considered moderate risk. If this is the case, consider specialist referral to assess eligibility for a risk reducing agent. 2. If overall lifetime risk for the development of breast cancer is 20% or higher, the patient may qualify for future screening with alternating mammogram and breast MRI. Electronically signed and approved by: Romel Emerson M.D. Radiologis
== END | disposition home or self-care (01) ==
LOC: RADMAMWWP 09:53
PROVIDERS: ATTEND Internal Medicine
DX: Z12.31 Encounter for screening mammogram for malignant neoplasm of breast (principal); Z80.3 Family history of malignant neoplasm of breast
CPT/HCPCS: 77063; 77067

== ENCOUNTER → 2024-04-27 | Outpatient (CLI) | payer BC ==
--- NOTE | 2024-04-27 08:57 | US ---
EXAMINATION TYPE: US carotid duplex BILAT DATE OF EXAM: 04/27/2024 COMPARISON: NONE CLINICAL INDICATION: Female, 54 years old with history of I65.23 CAROTID STENOSIS BILAT; Additional History: .... TECHNIQUE: Grayscale, color Doppler and spectral Doppler evaluation of the bilateral carotid systems and vertebral arteries. Indirect Doppler criteria was utilized. FINDINGS: EXAM MEASUREMENTS: RIGHT: Peak Systolic Velocity (PSV) cm/sec ----- Right CCA: 115.7 ----- Right ICA: 135.0 ----- Right ECA: 112.2 ICA/CCA ratio: 1.2 RIGHT: End Diastole cm/sec ----- Right CCA: 45.9 ----- Right ICA: 69.5 ----- Right ECA: 28.3 LEFT: Peak Systolic Velocity (PSV) cm/sec ----- Left CCA: 109.5 ----- Left ICA: 92.9 ----- Left ECA: 123.4 ICA/CCA ratio: 0.8 LEFT: End Diastole cm/sec ----- Left CCA: 40.9 ----- Left ICA: 43.4 ----- Left ECA: 26.2 VERTEBRALS (direction of flow): Right Vertebral: Antegrade Left Vertebral: Antegrade Rhythm: Normal Color Doppler imaging shows patency with blood flow throughout the carotid artery. Spectral waveforms are within normal limits. IMPRESSION: 1. Moderate narrowing between 50 and 69% right internal carotid artery based on velocities. Criteria for Assigning % of Stenosis / Diameter reduction (Estimation based on the indirect measurements of the internal carotid artery velocities (ICA PSV). 1. Normal (no stenosis)=ICA PSV < 125 cm/s: ratio < 2.0: ICA EDV<40 cm/s. 2. Less than 50% stenosis=ICA PSV < 125 cm/s: ratio < 2.0: ICA EDV<40 cm/s. 3. 50 to 69% stenosis=ICA PSV of 125 to 230 cm/s: ration 2.0 ? 4.0: ICA EDV 40-100 cm/s. 4. Greater than 70% stenosis to near occlusion= ICA PSV > 230 cm/s: ratio > 4.0: ICA EDV > 100 cm/s. 5. Near occlusion= ICA PSV velocities may be low or undetectable: variable ratio and ICA EDV. 6. Total occlusion=unable to detect flow. [facility], , 04/27/2024 8:55 AM
--- NOTE | 2024-04-27 12:14 | CA ---
Transthoracic Echo Report Name: Sarah Naylor Age: 54 Gender: F : 1970 Exam Date: 04/27/2024 10:46 Exam Location: [place] Ht (in): 65 Wt (lb): 185 Ordering Physician: Tez Cid MD Attending/Referring Phys: Tez Cid MD Senior Wealth Advisor Leatha Vieira RDCS Procedure CPT: Indications: Z82.49 FAMILY HX OF ISCHEM HEART DIS AND OTH DIS O Cardiac Hx: Technical Quality: Good Contrast 1: Total Dose (mL): Contrast 2: Total Dose (mL): MEASUREMENTS (Male / Female) Normal Values 2D ECHO LV Diastolic Diameter PLAX 3.7 cm 4.2 - 5.9 / 3.9 - 5.3 cm LV Systolic Diameter PLAX 2.8 cm IVS Diastolic Thickness 1.1 cm 0.6 - 1.0 / 0.6 - 0.9 cm LVPW Diastolic Thickness 1.2 cm 0.6 - 1.0 / 0.6 - 0.9 cm LV Relative Wall Thickness 0.6 RV Internal Dim ED PLAX 3.2 cm LA Systolic Diameter LX 2.8 cm 3.0 - 4.0 / 2.7 - 3.8 cm LV Diastolic Volume MOD BP 70.1 cm??? 67 - 155 / 56 - 104 cm??? LV Systolic Volume MOD BP 35.3 cm??? 22 - 58 / 19 - 49 cm??? LV Ejection Fraction MOD BP 49.6 % >= 55 % LV Cardiac Index MOD BP 1625.7 cm???/min???m??? LV Diastolic Volume MOD 4C 68.7 cm??? LV Systolic Volume MOD 4C 37.6 cm??? LV Ejection Fraction MOD 4C 45.3 % LV Cardiac Index MOD 4C 1457.1 cm???/min???m??? LV Diastolic Length 4C 7.6 cm LV Systolic Length 4C 6.2 cm LV Diastolic Volume MOD 2C 57.5 cm??? LV Systolic Volume MOD 2C 27.4 cm??? LV Ejection Fraction MOD 2C 52.4 % LV Cardiac Index MOD 2C 1410.1 cm???/min???m??? LV Diastolic Length 2C 7.3 cm LV Systolic Length 2C 6.4 cm LA Volume 30.4 cm??? 18 - 58 / 22 - 52 cm??? LA Volume Index 15.3 cm???/m??? 16 - 28 cm???/m??? M-MODE Aortic Root Diameter MM 3.2 cm AV Cusp Separation MM 1.9 cm DOPPLER AV Peak Velocity 129.3 cm/s AV Peak Gradient 6.7 mmHg MV Area PHT 3.2 cm??? Mitral E Point Velocity 69.1 cm/s Mitral A Point Velocity 97.7 cm/s Mitral E to A Ratio 0.7 MV Deceleration Time 235.6 ms TR Peak Velocity 225.7 cm/s TR Peak Gradient 20.4 mmHg Right Ventricular Systolic Press 25.2 mmHg FINDINGS Left Ventricle Left ventricular ejection fraction is estimated at 55-60 %. Small left ventricular cavity. Left ventricular cavity size normal. Mildly increased septal wall thickness. Right Ventricle Normal right ventricular size and function. Right ventricular systolic pressure within normal limits. Right Atrium Normal right atrial pressure. No right atrial thrombus or mass seen. Left Atrium Normal left atrial size. No left atrial thrombus or mass present. Mitral Valve Structurally normal mitral valve. No mitral stenosis, regurgitation or prolapse. Aortic Valve Trileaflet aortic valve. No aortic valve stenosis or regurgitation. Tricuspid Valve Structurally normal tricuspid valve. Mild tricuspid regurgitation. Pulmonic Valve Structurally normal pulmonic valve. Trace pulmonic regurgitation. Pericardium No pericardial or pleural effusion. Aorta Normal size aortic root and proximal ascending aorta. CONCLUSIONS Normal biventricular systolic function Previewed by: Dr. Charles Burch MD (Electronically Signed) Final Date: 27 April 2024 12:13
--- NOTE | 2024-04-27 12:15 | CA ---
Exercise Nuclear Stress Test Report Name: Sarah Naylor Exam Date: 04/27/2024 10:28 Exam Location: [place] Ht (in): 65 Wt (lb): 185 BSA: 1.91 Ordering Phys: Tez Cid MD Referring Phys: Tez Cid MD Technologist: Del Guaman Age: 54 Gender: F : 1970 Procedure CPT: Indications: Z82.49 FAMILY HX OF ISCHEM HEART DIS AND OTH DIS O ICD-10 Codes: Patient History: Medications: VALSARTAN, ATORVASTATIN, EZETIMIBE Meds past 24 hrs: Pretest Chest Pain: STRESS TEST Luiz Protocol Exercise Duration (min:sec): 06:[address] Depressions (mm): Angina Score: Sanchez Score: Resting HR (bpm): 88 Peak HR (bpm): 161 Resting BP (mmHg): 123 / 82 Peak BP (mmHg): 196 / 85 MPHR: 164 Target HR: 139 % MPHR: 98 METS: 8.0 Total Dose: Peak Dose: Atropine: Double Product: 22113 BP Response: Stress Termination: TARGET HR REACHED/MAX EXERTION Stress Symptoms: NO SYMPTOMS Stress Summary: ECG ANALYSIS Resting ECG: Stress ECG: CONCLUSIONS Good exercise tolerance Normal electrocardiogram stress test Dr. Charles Burch MD (Electronically Signed) Final Date: 27 April 2024 12:14
== END | disposition home or self-care (01) ==
LOC: RADNMMAIN 08:10
PROVIDERS: ATTEND Internal Medicine
DX: I35.1 Nonrheumatic aortic (valve) insufficiency (principal); I65.23 Occlusion and stenosis of bilateral carotid arteries; Z82.49 Family history of ischemic heart disease and other diseases of the circulatory system
CPT/HCPCS: 93017; 93306; 93880; 78452; A9500

== ENCOUNTER → 2024-05-21 | Outpatient (CLI) | payer BC ==
--- NOTE | 2024-05-21 14:49 | CT ---
EXAMINATION TYPE: CT angio head neck CT DLP: 1582.9 mGycm, Automated exposure control for dose reduction was used. DATE OF EXAM: 05/21/2024 2:18 PM COMPARISON: Carotid ultrasound 04/27/2024. CLINICAL INDICATION:Female, 54 years old with history of I65.23 carotid stenosis; PHH, carotid stenos is TECHNIQUE: Axially acquired helical CT angiogram of the head and neck was obtained with contrast util izing 75 cc of Isovue-370 administered intravenously. Noncontrast imaging of the head was obtained be fore IV contrast. Axial images are supplemented with 3D reconstructions which were post-processed at an independent workstation. NASCET criteria used. FINDINGS: CTA HEAD: No evidence of acute intracranial hemorrhage, mass effect, or midline shift. The ventricles, sulci, a nd cisterns are unremarkable. Complete opacification left maxillary sinus with a internal 3 mm calcif ication. Additional high density material identified within the left maxillary sinus. Minimal mucosal thickening of the left anterior ethmoid sinus. Remaining paranasal sinuses are clear. The visualized portions of the internal carotid arteries, middle cerebral arteries, anterior cerebral arteries, and posterior cerebral arteries are patent. The basilar and vertebral arteries are patent. CTA NECK: Right Carotid System: The common carotid artery and external carotid artery are patent. The carotid bifurcation demonstrate s no evidence of hemodynamically significant stenosis. The remaining portions of the internal carotid artery demonstrate normal size without significant narrowing. Left Carotid System: The common carotid artery and external carotid artery are patent. The carotid bifurcation demonstrate s no evidence of hemodynamically significant stenosis. The remaining portions of the internal carotid artery demonstrate normal size without significant narrowing. Vertebral arteries are patent without evidence hemodynamically significant stenosis. There is a three-vessel aortic arch. The origins of the great vessels are patent. No evidence of hemo dynamically significant stenosis. Multilevel degenerative disc disease of the cervical spine. IMPRESSION: 1. No evidence of dissection of the cervical internal carotid arteries or vertebral arteries or any e vidence of significant stenosis at the carotid bifurcations. 2. No evidence of high-grade stenosis or intracranial aneurysm. 3. Complete opacification left maxillary sinus with internal high density material and calcification. May represent sequelae of chronic sinusitis versus other etiologies. [facility], , 05/21/2024 2:47 PM
== END | disposition home or self-care (01) ==
LOC: RADCTMAIN 13:21
PROVIDERS: ATTEND Internal Medicine
DX: I65.23 Occlusion and stenosis of bilateral carotid arteries (principal); M50.30 Other cervical disc degeneration, unspecified cervical region
CPT/HCPCS: 70496; 70498; Q9967

== ENCOUNTER → 2024-09-17 | Outpatient (CLI) | payer BC ==
--- NOTE | 2024-09-17 19:05 | CT ---
EXAMINATION TYPE: CT sinus wo con CT DLP: 415 mGycm, Automated exposure control for dose reduction was used. DATE OF EXAM: 09/17/2024 5:42 PM COMPARISON: CTA head and neck 05/21/2024. CLINICAL INDICATION:Female, 54 years old with history of J320 CHRON LEFT MAX SINUSITIS,M79.671PAIN IN RIGHT; PHH, abnormal sinus findings on carotid scan CONTRAST: None. TECHNIQUE: Multiple thin axial images were obtained through the paranasal sinuses without the use of IV contrast. Additional coronal and sagittal reformatted images were submitted for evaluation. FINDINGS: Frontal sinuses: Normally developed and aerated. Frontal Recess: Clear Maxillary Sinuses: Normally developed. The right maxillary sinus is clear. Near complete opacificatio n of the left maxillary sinus with hyperdense material layering in the inferior aspect. There is asso ciated hyperostosis of the left maxillary sinus coto. Maxillary Infundibula([facility]): No Gerda cells. The right is clear. Opacification of the left ostiomeata l complex. Ethmoid sinuses: Normally developed and aerated. Ethmoidal notch: Protected and abutting the lateral lamina. Sphenoid sinuses: Normally developed and aerated. There is partial cerebellar sphenoid sinus pneumati zation without evidence of dehiscence. No dehiscence of carotid canal. No evidence of optic nerve de hiscence within the sphenoid sinus. No evidence of Onodi cells. Sphenoethmoidal recesses: Clear. Nasal septum: Within normal limits.. Nasal Turbinates: No joão bullosa. There is some opacification adjacent to the left middle turbinat e with a coarse calcification. Mastoid air cells & middle ears: The air cells are clear. The middle ears are grossly unremarkable. Modified Soft tissues & Brain: Partially seen without gross abnormality. Globes are intact. Other: Cribriform plate demonstrates symmetric Keros classification type 2 cribriform plate. No evidence of bony dehiscence of skull base. Lamina papyracea is intact without evidence of remote orbital fracture or orbital prolapse into the e thmoid sinus. IMPRESSION: Chronic-appearing left maxillary sinusitis with near-complete opacification and hyperostosis. Opacifi cation of the left ostiomeatal complex. High density material identified within the left maxillary si nus which could be related to chronic sinusitis debris with fungal component not excluded. Remaining paranasal sinuses are clear. [facility], , 09/17/2024 7:03 PM
--- NOTE | 2024-09-18 08:04 | XR ---
EXAMINATION TYPE: XR calcaneus 2V RT DATE OF EXAM: 09/17/2024 5:22 PM COMPARISON: None CLINICAL INDICATION: Female, 54 years old with history of right heel pain for months, no injury TECHNIQUE: Kwon and lateral views FINDINGS: Moderate sized posterior and plantar heel spurs. There is some soft tissue swelling posteriorly at ea ch of these insertion with tendinous insertional thickening up to 1.2 cm. Os peroneum noted. Subtalar joint alignment. No acute fracture, subluxation, or dislocation. IMPRESSION: 1. At least moderate insertional Achilles tendinopathy. No obvious retracted tear by radiograph. If m ore detailed characterization suggests for intrasubstance or partial tearing is desired, MRI can be c onsidered. 2. Accompanying moderate sized posterior and plantar heel spurs. [facility], , 09/18/2024 8:02 AM
== END | disposition home or self-care (01) ==
LOC: RADCTMAIN 16:55
PROVIDERS: ATTEND Internal Medicine
DX: J32.0 Chronic maxillary sinusitis (principal); M76.61 Achilles tendinitis, right leg; M85.88 Other specified disorders of bone density and structure, other site
CPT/HCPCS: 70486